=== PATIENT | male | born 1945 | race Caucasian/White ===

== ENCOUNTER 2023-03-08 09:09 | Outpatient (RCR) | payer MEDICARE, OTHER | END 2023-03-16 | disposition home or self-care (01) | LOC: ONC 09:09 | PROVIDERS: ATTEND Internal Medicine Hematology & Oncology | DX: C61 Malignant neoplasm of prostate (principal) | CPT/HCPCS: 76873; G0463; 99205 ==

== ENCOUNTER 2023-03-17 11:13 | Outpatient (RCR) | payer MEDICARE ==
[2023-03-17] MEDS ORDERED: LEUPROLIDE 22.5 MG SYRINGE (ELIGARD) SQ SCH (12:00)
== END 2023-04-15 | disposition home or self-care (01) ==
LOC: ONC 11:13
PROVIDERS: ATTEND Internal Medicine Hematology & Oncology
DX: Z51.11 Encounter for antineoplastic chemotherapy (principal); C61 Malignant neoplasm of prostate; E11.9 Type 2 diabetes mellitus without complications; I11.9 Hypertensive heart disease without heart failure; E78.00 Pure hypercholesterolemia, unspecified
CPT/HCPCS: 96402; G0463; 99204